=== PATIENT | female | born 1995 | race Caucasian/White ===

== ENCOUNTER 2021-09-02 11:06 | Outpatient (REF) | payer MEDICAID, SELFPAY ==
--- NOTE | ~2021-09-02 | US_ITS ---
EXAMINATION: ULTRASOUND OF THE PELVIS CLINICAL INFORMATION: Pelvic pain. History of PCOS. COMPARISON: CT 11/07/2012. TECHNIQUE: Transabdominal and transvaginal pelvic ultrasound. A transvaginal study was performed in addition to the transabdominal study which did not yield an adequate examination of the uterus and ovaries due to superimposed distended gas-filled loops of bowel. FINDINGS: The uterus is normal in size and appearance, measuring 9 x 3.7 x 4.6 cm longitudinally, anteroposteriorly and transversely. The endometrial stripe thickness is normal, measuring 1.3 cm in thickness. No focal myometrial mass is seen. The ovaries bilaterally are visualized and appear normal, with the right ovary measuring 3.4 x 1.5 x 2.6 cm and the left ovary measuring 2.7 x 2.4 x 2.6 cm. Multiple small follicles are seen involving both ovaries. Dominant follicle the left ovary measures 1.5 cm. No adnexal mass or free fluid collection seen. US/US pelvic and transvaginal IMPRESSION: Multiple small bilateral ovarian follicles can be seen in the setting of polycystic ovarian syndrome..
== END 2021-09-02 11:07 | disposition home or self-care (01) ==
LOC: HO.US 11:06
PROVIDERS: Absent Provider Nurse Practitioner Primary Care; PCP Nurse Practitioner Primary Care; Visit Provider Advanced Practice Midwife
DX: R10.2 Pelvic and perineal pain (principal)
CPT/HCPCS: 76830; 76856

== ENCOUNTER 2022-12-15 16:05 | Outpatient (RCR) | payer MEDICAID, SELFPAY | END 2023-01-31 10:31 | disposition home or self-care (01) | LOC: HO.PT 16:05 | PROVIDERS: PCP Nurse Practitioner Primary Care; Visit Provider Nurse Practitioner Primary Care | DX: M54.41 Lumbago with sciatica, right side (principal); R29.898 Other symptoms and signs involving the musculoskeletal system | CPT/HCPCS: 97110; 97162 ==

== ENCOUNTER 2023-05-27 09:36 | Outpatient (REF) | payer MEDICAID, SELFPAY ==
[2023-05-27 12:28] LABS: TSH reflex Free T4 1.38 uIU/mL (0.32-4.0)
== END 2023-05-27 09:37 | disposition home or self-care (01) ==
LOC: HO.HHCL 09:36
PROVIDERS: Visit Provider Nurse Practitioner Primary Care
DX: R63.5 Abnormal weight gain (principal)
CPT/HCPCS: 36415; 84443

== ENCOUNTER 2024-05-24 12:25 | Outpatient (REF) | payer MEDICAID, SELFPAY ==
--- NOTE | ~2024-05-24 | XR_ITS ---
EXAMINATION: XR HIP, RIGHT XR HIP, LEFT CLINICAL INFORMATION: Atraumatic hip pain COMPARISON: None TECHNIQUE: AP and frog-leg lateral views of each hip. FINDINGS: RIGHT HIP: No fracture. Alignment is anatomic. Hip joint space is maintained. Soft tissues are unremarkable. LEFT HIP: No fracture. Alignment is anatomic. Hip joint space is maintained. Soft tissues are unremarkable. XR/XR hip RT min 2V IMPRESSION: Normal hip radiographs.
--- NOTE | ~2024-05-24 | XR_ITS ---
EXAMINATION: XR HIP, RIGHT XR HIP, LEFT CLINICAL INFORMATION: Atraumatic hip pain COMPARISON: None TECHNIQUE: AP and frog-leg lateral views of each hip. FINDINGS: RIGHT HIP: No fracture. Alignment is anatomic. Hip joint space is maintained. Soft tissues are unremarkable. LEFT HIP: No fracture. Alignment is anatomic. Hip joint space is maintained. Soft tissues are unremarkable. XR/XR hip LT min 2V IMPRESSION: Normal hip radiographs.
== END 2024-05-24 12:26 | disposition home or self-care (01) ==
LOC: HO.XRAY 12:25
PROVIDERS: PCP Nurse Practitioner Primary Care; Visit Provider Nurse Practitioner Primary Care
DX: M25.551 Pain in right hip (principal); M25.552 Pain in left hip
CPT/HCPCS: 73502

== ENCOUNTER → 2024-08-02 17:52 | Outpatient (BNV) | payer MEDICAID, SELFPAY | PROVIDERS: PCP Nurse Practitioner Primary Care; Visit Provider Radiology Diagnostic Radiology | DX: M54.50 Low back pain, unspecified (principal) | CPT/HCPCS: 72148; 72195 ==

== ENCOUNTER 2024-08-02 17:55 | Outpatient (REF) | payer MEDICAID, SELFPAY ==
--- NOTE | ~2024-08-02 | MR_ITS ---
EXAMINATION: MR SACROCOCCYX WITH CONTRAST CLINICAL INFORMATION: Back pain. COMPARISON: None available. TECHNIQUE: Axial T2 fat sat. Axial T1 sequence. Coronal T1 sequence. Coronal STIR sequence. FINDINGS: Submitted for interpretation on October 03, 2024. No bone marrow STIR signal abnormality in the sacrococcyx is or the included bony pelvis nor the coxofemoral joints. No ascites in the peritoneal pelvic cavity. Multiple follicles in the adnexa. No gross solid mass in the uterus. Bladder is fluid-filled. No gross lymphadenopathy. No dilatation of the rectosigmoid colon. MR/MR pelvis wo con IMPRESSION: No acute fracture, sacrococcyx . Electronically signed by: Jaime Bowen MD 10/03/2024 03:52 PM EST
--- NOTE | ~2024-08-02 | MR_ITS ---
EXAMINATION: MR LUMBAR SPINE WITHOUT CONTRAST CLINICAL INFORMATION: Low back pain. COMPARISON: None available. TECHNIQUE: MRI of the lumbar spine was obtained using routine sequences without contrast. FINDINGS: Submitted for interpretation on October 03, 2024. No bone marrow STIR signal abnormality. Disc desiccation at L5-S1. There is a subtle grade 1 retrolisthesis L5-S1. The conus medullaris ends at intervertebral disc L1-2 with normal signal. T12-L1: No disc herniation. No neuroforamina stenosis. L1-2: No disc herniation. No neuroforamina stenosis. L2-3: Broad-based disc bulging. Facet joint hypertrophy. Reduced AP diameter of the thecal sac. No compression upon neural elements. L3-4: Broad-based disc bulging. Facet joint hypertrophy. Reduced AP diameter of the thecal sac. No compression upon neural elements. L4-5: Broad-based disc bulging. Facet joint hypertrophy. Reduced AP diameter of the thecal sac and the neural foramina. No compression upon neural elements. L5-S1: Central and left subarticular broad-based disc herniation encroaching the left S1 nerve root. Facet joint hypertrophy. Bilateral neuroforamina narrowing encroaching the L5 exiting nerve roots. No prevertebral compartment hematoma, mass or fluid collection. MR/MR lumbar spine wo con IMPRESSION: Central and left subarticular broad-based disc herniation L5-S1 encroaching the left S1 nerve root. Bilateral neuroforamina narrowing at L5-S1 and to a lesser extent L4-5 on a degenerative basis. Electronically signed by: Jaime Bowen MD 10/03/2024 09:51 AM EST
== END 2024-08-02 17:56 | disposition home or self-care (01) ==
LOC: HO.MRI 17:55
PROVIDERS: PCP Nurse Practitioner Primary Care; Visit Provider Nurse Practitioner Primary Care
DX: R29.898 Other symptoms and signs involving the musculoskeletal system (principal); M25.651 Stiffness of right hip, not elsewhere classified; M25.652 Stiffness of left hip, not elsewhere classified; M25.551 Pain in right hip; M25.552 Pain in left hip; Z87.39 Personal history of other diseases of the musculoskeletal system and connective tissue
CPT/HCPCS: 72148; 72195

== ENCOUNTER 2024-08-16 14:09 | Outpatient (REF) | payer MEDICAID, SELFPAY ==
[2024-08-16 16:25] LABS: MANUAL DIFF FLAG NO
[2024-08-16 16:30] LABS: Basophils Percent Auto 0.4 % (0-2); Eosinophils Absolute Auto 0.3 X10*3/uL (0.0-0.4); Eosinophils Percent Auto 4.3 % (0-4); Hematocrit 39.3 % (37.0-47.0); Hemoglobin 13.6 g/dl (12.0-16.0); Imm Gran Abs Auto 0.02 X10*3/uL (0.00-0.03); Imm Gran Pct Auto 0.3 % (0.0-0.4); Lymphocytes Absolute Auto 2.8 X10*3/uL (1.2-4.9); Lymphocytes Percent Auto 35.8 % (20-40); Mean Corpuscular HGB Conc 34.6 g/dl (31.0-35.0); Mean Corpuscular Hemoglobin 31.7 pg (27.0-33.0); Mean Corpuscular Volume 91.6 fL (80.0-98.0); Mean Platelet Volume 10.2 fL (9.4-12.3); Monocytes Absolute Auto 0.4 X10*3/uL (0.1-1.2); Monocytes Percent Auto 5.2 % (2-11); Neutrophils Absolute Auto 4.3 x10*3/uL (2.0-8.3); Platelet Count 268 X10*3/uL (160-400); Red Blood Count 4.29 X10*6/uL (4.20-5.50); Red Cell Distribution Width 12.1 % (11.0-16.0); White Blood Count 7.9 X10*3/uL (4.8-10.8)
[2024-08-16 16:41] LABS: Alanine Aminotransferase 11 U/L (0-31); Albumin Level 4.3 g/dL (3.5-5.0); Alkaline Phosphatase 60 U/L (39-117); Anion Gap 12 (12-20); Aspartate Amino Transferase 17 U/L (5-31); Bilirubin Total 0.4 mg/dL (0.0-1.0); Blood Urea Nitrogen 12 mg/dL (9-16); C Reactive Protein 0.19 mg/dL (< or = 0.50); Calcium 9.6 mg/dL (8.4-10.2); Carbon Dioxide 24 mmol/L (22-29); Chloride 107 mmol/L (96-108); Estimated Glomerular Filt Rate > 60; Glucose Random 87 mg/dL (60-115); Potassium 3.7 mmol/L (3.3-5.1); Sodium 139 mmol/L (135-145); Total Protein 7.2 g/dL (6.5-8.0)
[2024-08-16 16:46] LABS: Rheumatoid Factor < 13.0 IU/mL (<15.0)
[2024-08-16 17:09] LABS: Vitamin B12 225 pg/mL (200-900)
[2024-08-16 17:16] LABS: Erythrocyte Sedimentation Rate 10 MM/HR (0-20)
[2024-08-20 15:22] LABS: Anti Nuclear Antibody Pattern Nuclear, Homogeneous; Anti Nuclear Antibody Screen POSITIVE (NEGATIVE); Anti Nuclear Antibody Titer 1:40 titer
[2024-08-20 17:48] LABS: Cyclic Citrullinated Peptide <16 UNITS
== END 2024-08-16 14:10 | disposition home or self-care (01) ==
LOC: HO.HHCL 14:09
PROVIDERS: Visit Provider Nurse Practitioner Primary Care
DX: Z00.00 Encounter for general adult medical examination without abnormal findings (principal); M25.652 Stiffness of left hip, not elsewhere classified; M25.651 Stiffness of right hip, not elsewhere classified
CPT/HCPCS: 36415; 80053; 82607; 85025; 85652; 86038; 86039; 86140; 86200; 86431

== ENCOUNTER 2024-12-14 14:31 | Outpatient (REF) | payer MEDICAID, SELFPAY ==
--- OUTSIDE RECORDS SUMMARY | 2024-12-14 14:35 | XMS_ITS | Encounter Summary ---
Author Organization [employer] Address [address] [place] [address] [address] [place] [address] Care Team Providers Care Art History Professor Name Role Phone Miley Wheatley Primary Care Provider [phone] Keo Carlson Unavailable Unavailable Encounter Details Date Type Department Care Team ([facility] st Contact Info) Description 09/29/2022 Abstract [facility] [address], [place] [phone] Dental, Provider, DDS Social History Tobacco Use Types Packs/Day Years Used Date Smoking Tobacco: Never Assessed Comments Unknown Sex and Gender Information Value Date Recorded Sex Assigned at Female 08/30/2022 10:25 AM EDT Legal Sex Female 10:25 AM EDT Gender Identity Female 08/30/2022 10:25 AM EDT Sexual Orientation Straight 08/30/2022 10 :25 AM EDT documented as of this encounter Plan of Treatment Not on file documented as of this encounter Procedures Procedure Name Priority Date/Time Associated Diagnosis Comments 2 LO COMPOSITE FILLING Routine 09/29/2022 12:00 AM EST 1 EXTRACTION Routine 09/29/2022 12:00 AM EST 32 EXTRACTION Routine 09/29/2022 12:00 AM EST 17 EXTRACTION Routine 09/29/2022 12:00 AM EST 16 EXTRACTION Routine 09/29/2022 12:00 AM EST documented in this encounter Visit Diagnoses Not on filedocumented in this encounter Care Teams Art History Professor Relationship Specialty Start Date End Date Miley Wheatley ANP [address] [place] [address] PCP - General Family Medicine 07/21/21 Keo Carlson FNP [address] [place] [address] Nurse Practitioner Family Medicine 09/20/23 documented as of this encounter
--- OUTSIDE RECORDS SUMMARY | 2024-12-14 14:35 | XMS_ITS | Encounter Summary ---
Author Organization [facility] Address [address] [place] [phone] Phone Care Team Providers Care Glazing Department Supervisor Name Role Phone Shelia Erickson MD Primary Care Provider Unava ilable Encounter Details Date Type Department Care Team (Late st Contact Info) Description 12/18/2013 Documentation [facility] Family Medicine [address] [place] [address] Family Medicine, Physician [address] [place], [place] [phone] Social History Tobacco Use Types Packs/Day Years Used Date Smoking Tobacco: Never Assessed Comments Unknown Sex and Gender Information Value Date Recorded Sex Assigned at Not on file Legal Sex Female 4:44 PM EDT Gender Identity Not on file Sexual Orientation Not on file documented as of this encounter Plan of Treatment Not on file documented as of this encounter Visit Diagnoses Not on filedocumented in this encounter Care Teams Glazing Department Supervisor Relationship Specialty Start Date End Date Shelia Erickson MD PCP - General 06/10/17 documented as of this encounter
--- OUTSIDE RECORDS SUMMARY | 2024-12-14 14:35 | XMS_ITS | Patient Health Record ---
Author Organization [facility] Address [address] [place] [address] Care Team Providers Care Afternoon Babysitter Name Role Phone GERMANIA JACOBSON Primary Care Provider Unavailab Shara Long Unavailable [phone] Allergies Allergen (clinical drug ingredient) Drug/Non Drug Allergy documented on EMR Reaction Allergy Type Onset Date Status amoxicillin AMOXICILLIN Skin Rash Drug Allergy Act sanjeev carbamazepine TEGRETOL Skin Rash Drug Allergy Act sanjeev Reason For Referral No Information Medications Medication SIG (Take, Route, Frequency, Duration) Notes Start Date End Date Status EpiPen 2-Robert 0.3 MG/0.3ML Intramuscula for -3 [facility] 10/15/2014 Active ProAir HFA 90MCG 2 Inhalation four ti mes daily for -3 [facility] 10/15/2014 Active FLUoxetine HCl UNKNOWN 1 ORAL daily for -3 [facility] 012 Active Aygestin 5 MG 1 tablet Orally ALEC Y for 10 days 11/05/2015 Not-Taking Ativan 0.5 MG 1 tablet as needed Orally Twice a day Active NuvaRing 0.12-0.015MG/24HR Vaginal for -3 [facility] 10/15/2014 Active NuvaRing 0.12-0.015 MG/24HR 1 ring Vaginal EVERY MONTH for 90 days 01/20/2016 Active cloNIDine HCl 1 MG 1 ORAL daily for -3 [facility] 03/23/2012 Active Problems Problem Type SNOMED Code ICD Code Onset Dates Problem Status W/U Status Risk Notes Problem Amenorrhea (88375558) Amenorrhea, unspecified (N91.2) Active confirmed Problem Candidal vulvovaginitis (80514976) Candidiasis of vulva and vagina (112.1) Active confirmed Other Problem Female genital organ symptoms (337383042) Other specified symptom associated with female genital organs (625.8) Active confirmed Major Plan Of Treatment Pending Test Test Name Order Date Urinalysis 01/20/2016 TESTOSTERONE 11/05/2015 Insurance Providers Payer Name Payer Address Payer Phone Subscriber Number Group Number Insured Name Patient Relationship to Insured Coverage Start Date Coverage End Date [facility] [address] [place] [address] [id number] SHARMAINE GALEANO Child - Insured has Financial Responsibility Medical (General) History Medical History History ICD Code Other specified conditions a ssociated with female genital organs and menstrual cycle N94.89 Candidiasis of vulva and vagina B37.3 Surgical History Surgery Date(Month/Year) Breast Reduction 09/2014 Hospitalization History Reason Date(Month/Year) See Surgical Hx
--- OUTSIDE RECORDS SUMMARY | 2024-12-14 14:35 | XMS_ITS | Clinical Summary ---
Author Organization [facility] Address [address] [place] [address] Phone Care Team Providers Care Ophthalmic Surgical Assistant Name Role Phone Shelia Erickson MD Primary Care Provider Amol ildeyvi Immunizations Immunization Administration Dates Next Due DTP 04/04/1996, 5,1995, 995 DTaP 5 01/11/2000 HPV, Quadrivalent 10/12/2012,03/31/2012,07/21/20 11 Hep B, ped/adol 1995,1995,1995 Hib (PRP-T) 04/04/1996, 5,1995, 995 IPV 01/11/2000 Influenza Split 10/12/2012,07/21/2011 MMR 05/13/1999,04/04/1996 Meningococcal Conj (Menactra) MCV4P 01/02/2007 OPV 1995,1995,1995 Tdap 01/02/2007 Varicella 05/15/2008,05/13/1999 Family History Relation Name Status Comments Father Alive Father: Alive a nd well Mother Alive Mother: Asthma Sister 1 Alive Sister: Alive a nd well, Alive and well Sister 2 Alive Sister: Alive a nd well, Alive and well Social History Tobacco Use Types Packs/Day Years Used Date Smoking Tobacco: Never Assessed Comments Unknown Sex and Gender Information Value Date Recorded Sex Assigned at Not on file Legal Sex Female 4:44 PM EDT Gender Identity Not on file Sexual Orientation Not on file Last Filed Vital Signs Vital Sign Reading Time Taken Comments Blood Pressure 110/70 02/05/2013 12:00 AM EDT Pulse 72 09/16/2011 12:00 AM EST Temperature 36.8 ??C (98.2 ??F) 02/05/2013 12:00 AM E DT Respiratory Rate - - Oxygen Saturation 97% 09/16/2011 12:00 AM EST Inhaled Oxygen Concentration - - Weight 75.3 kg (166 lb) 02/05/2013 12:00 AM EDT Height 157 cm (5' 1.8 ) 02/05/2013 12:00 AM EDT Body Mass Index 30.56 02/05/2013 12:00 AM EDT Plan of Treatment Health Maintenance Due Date Last Done Comments DTaP,Tdap,and Td Vaccines (7 - Td or Tdap) 01/02/2017 01/02/2007, 01/11/2000, 04/04/1996, Additional history exists Influenza Vaccines (#1) 2024 10/12/2012, 07/21 COVID-19 Vaccine ( season) 2024 Hepatitis B Vaccines Completed 1995, 1995, 1995 HIB Vaccines Completed 04/04/1996, 05/1995, 1995, Additional history exists MMR Vaccines Completed 05/13/1999, 04/04/1996 IPV Vaccines Completed 01/11/2000, 05/1995, 1995, Additional history exists Meningococcal Vaccine Aged Out 01/02/2007 No josh dmitry eligible based on patient's age to complete this topic Varicella Vaccines Completed 05/15/2008, 05/13/1999 HPV Vaccines Completed 10/12/2012, 10/2011, 07/21/2011 Hepatitis A Vaccines Aged Out No long er eligible based on patient's age to complete this topic Men B Vaccine Aged Out No longer elig ible based on patient's age to complete this topic Pneumococcal Vaccine Aged Out No long er eligible based on patient's age to complete this topic Procedures * Due to [place] Med[employer] law, this organization might not be sharing sensitive test results. Procedure Name Priority Date/Time Associated Diagnosis Comments CHLAMYDIA AND GONORRHEA, AMPLIFIED Routine 02/06/2013 12:54 PM EDT from Last 3 Months or Most Recently Relevant to Health Maintenance Results * Due to [place] [employer] law, this organization might not be sharing sensitive test results. * Chlamydia and Gonorrhoea, Amplified (02/06/2013 12:54 PM EDT) URINE CHLAMYDIA AMP PROBE NEGATIVE [facility] Comment: NO CHLAMYDIA TRACHOMATIS RNA DETECTED IN THIS PATIENT'S SAMPLE. ? (REFERENCE RANGE/NORMAL VALUE: NOT DETECTED) URINE GC AMP PROBE NEGATIVE [facility] Comment: NO NEISSERIA GONORRHOEAE RNA DETECTED IN THIS PATIENT'S SAMPLE. ? (REFERENCE RANGE/NORMAL VALUE: NOT DETECTED) ? NOTE: THIS TEST USES [employer] BUSINESS ANALYST-MEDIATED AMPLIFICATION METHOD TO DETECT rRNA FROM C.TRACHOMATIS AND N.GONORRHOEAE. A NEGATIVE RESULT DOES NOT PRECLUDE INFECTION. THE APTIMA COMBO 2 ASSAY IS NOT INTENDED FOR THE EVALUATION OF SUSPECTED SEXUAL ABUSE OR FOR OTHER MEDICO LEGAL INDICATIONS. THERAPEUTIC FAILURE OR SUCCESS CANNOT BE DETERMINED WITH THE APTIMA COMBO 2 ASSAY SINCE NUCLEIC ACID MAY PERSIST FOLLOWING APPROPRIATE ANTIMICROBIAL THERAPY. IN THE CASE OF A NEGATIVE URINE RESULT, TESTING OF AN ENDOCERVICAL (FEMALE) OR URETHRAL (MALE) SPECIMEN IS RECOMMENDED IF THERE IS HIGH CLINICAL SUSPICION OF INFECTION. 02/06/2013 12:5 4 PM EDT Narrative [facility] - 02/06/2013 12:54 PM EDT URINE CHLAMYDIA GC AMP PROBE us Fe Sanchez MD LAB MICROBIOLOGY - GENERAL ORDER RAFFI Final Result [facility] [address] [place] [id number], [place] from Last 3 Months or Most Recently Relevant to Health Maintenance Care Teams Ophthalmic Surgical Assistant Relationship Specialty Start Date End Date Shelia Erickson MD PCP - General 06/10/17
--- OUTSIDE RECORDS SUMMARY | 2024-12-14 14:35 | XMS_ITS | Encounter Summary ---
Author Organization [employer] Address [address] [place] [address] Care Team Providers Care Superintendent Sales Name Role Phone Dioni Miley DOWNEY Primary Care Provider [phone] Keo Carlson Unavailable Unavailable Encounter Details Date Type Department Care Team (Late st Contact Info) Description 11/22/2024 1:50 PM EST Immunization [facility] [address], [place] [phone] Melvi Pleitez LPN B12 deficiency (Primary Dx) Social History Tobacco Use Types Packs/Day Years Used Date Smoking Tobacco: Former Cigarettes Passive Smoke Exposure: Past Smokeless Tobacco: Never Alcohol Use Standard Drinks/Week Comments Yes 1 (1 standard drink = 0.6 oz pur e alcohol) Depression Answer Date Recorded Patient Health Questionnaire-9 Score 3 01/10/2024 Patient Health Questionnaire-9 Score 3 01/10/2024 Last PHQ-9: Questionnaire Data Not on file 0 01/10/2024 Housing Stability Answer Date Recorded What is your housing situation today? I have rafa marie 04/05/[address] you li ve. Do you have problems with any of the following? None of the above 04/05/2024 Food Insecurity Answer Date Recorded Within the past 12 months, y ou worried that your food would run out before you got money to buy more: Never True 04/05/2024 Within the past 12 months,th e food you bought just didn't last and you didn't have enough money to get more: Never True 03/2024 Transportation Answer Date Recorded In the past 12 months, has l ack of transportation kept you from medical appts, meetings, work or from getting things needed for daily living? No 04/05/2024 Utilities Answer Date Recorded In the past 12 months, has t he electric, gas, oil or water company threatened to shut off services in your home? No 04/05/2024 Depression Answer Date Recorded Patient Health Questionnaire-2 Score 0 01/10/2024 Comments No Sex and Gender Information Value Date Recorded Sex Assigned at Female 08/30/2022 10:25 AM EDT Legal Sex Female 10:25 AM EDT Gender Identity Female 08/30/2022 10:25 AM EDT Sexual Orientation Straight 08/30/2022 10 :25 AM EDT documented as of this encounter Progress Notes * Melvi Pleitez LPN - 11/22/2024 1:50 PM EST SUBJECTIVE: Demetria Goel is a 29 y.o. year old female who presents for No chief complaint on file. Preferred language for medical information: Bulgarian Estate Manager needed: No Standing Ordered verified: Yes, Demetria Goel denies any difficulties with previous injection that was received. Allergies Allergen Reactions Fish Oil Anaphylaxis Warners, other fish ok Peanut-Containing Drug Products Anaphylaxis Soybean-Containing Drug Products Anaphylaxis Tree Nuts [Irene Oil] Hives Fluoxetine Other Other reaction(s): Suicidality Amoxicillin Hives and Rash Carbamazepine Hives and Rash OBJECTIVE: B-12 injection given in Right Deltoid, medication was tolerated well. ASSESSMENT: Vitamin B12 deficiency PLAN: Demetria Goel will return for next injection on 11/29/2024 . [x] Advised to monitor injection site for any increased redness or swelling [x] Next appointment given Demetria Goel agrees with plan of care and verbalized understanding of instructions/education. Melvi Pleitez LPN documented in this encounter Plan of Treatment Not on file documented as of this encounter Visit Diagnoses Diagnosis B12 deficiency- Primary documented in this encounter Administered Medications Inactive Administered Medications - up to 3 most recent administrations Medication Order MAR Action Action Date Dose Rate Site cyanocobalamin (Vitamin B-12) injection 1,000 mcg 1,000 mcg, Intramuscular, Once, On Inocencia 11/22/24 at 1515, For 1 doseIndications:B12 deficiency Given 11/22/2024 3:15 PM EST 1,000 mcg Right Deltoid documented in this encounter Additional Health Concerns Assessment Noted Time PHQ-9 Depression Total Score: 3 01/10/20 24 9:18 AM EDT documented as of this encounter Care Teams Superintendent Sales Relationship Specialty Start Date End Date Miley Wheatley ANP [address] [place] [address] PCP - General Family Medicine 07/21/21 Keo Carlson FNP [address] [place] [address] Nurse Practitioner Family Medicine 09/20/23 documented as of this encounter
--- OUTSIDE RECORDS SUMMARY | 2024-12-14 14:35 | XMS_ITS | Clinical Summary ---
Author Organization [facility] Address [address] [place] [phone] Phone Care Team Providers Care Windsmith Name Role Phone Pito Mims MD Primary Care Provider [phone] Encounters Date Type Department Care Team Description 12/05/2024 9:00 AM EST - 12/05/2024 11:59 PM EST Hospital Encounter [facility] [address] [place] [phone] Localization-relate d (focal) (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, not intractable, without status epilepticus (CMS/HCC) (Primary Dx) Discharge Disposition: Home or Self Care 12/05/2024 Lab [facility] [address] [place] [phone] Odalys Gaona MD Localization-relate d (focal) (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, not intractable, without status epilepticus (CMS/HCC) 12/04/2024 9:00 AM EST - 12/04/2024 11:59 PM EST Hospital Encounter [facility] [address] [place] [phone] Discharge Disposition: Home or Self Care 12/04/2024 [facility] [address] [place] [phone] Odalys Gaona MD Localization-relate d (focal) (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, not intractable, without status epilepticus (CMS/HCC) 12/03/2024 7:39 AM EST - 12/03/2024 11:59 PM EST Hospital Encounter [facility] [address] [place] [phone] Discharge Disposition: Home or Self Care 12/03/2024 Lab [facility] [address] [place] [phone] Odalys Gaona MD Localization-relate d (focal) (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, not intractable, without status epilepticus (CMS/HCC) from Last 3 Months Surgical History Surgery Date Site/Laterality Comments BREAST REDUCTION 2012 PROCEDURE: LA BREAST REDUCTION Medical History Medical History Date Comments PCOS (polycystic ovarian syndrome) DX:PCOS (polycystic ovarian syndrome) Anxiety DX:Anxiety Depression DX:Depression Family History Medical History Relation Name Comments Colon cancer Other 1 Breast cancer Other 2 Ovarian cancer Other 3 Relation Name Status Comments Other 1 Other 2 Other 3 Other 4 Social History Tobacco Use Types Packs/Day Years Used Date Smoking Tobacco: Never Smokeless Tobacco: Never Alcohol Use Standard Drinks/Week Comments Yes 0 (1 standard drink = 0.6 oz pur e alcohol) Comments Unknown Sex and Gender Information Value Date Recorded Sex Assigned at Not on file Legal Sex Female 11:47 PM EST Gender Identity Not on file Sexual Orientation Not on file Obstetrics History Plan of Treatment Health Maintenance Due Date Last Done Comments Hepatitis A Vaccines (2 of 2 - 2-dose series) 11/13/1999 05/13/1999 Pneumococcal Vaccine: Pediatrics (0 to 5 Years) and At-Risk Patients (6 to 64 Years) (1 of 2 - PCV) 2014 Cervical Cancer Screening: Pap Smear 01/06/2016 Hepatitis C Screening 11/30/2024 Social Influencers of Health Screening 11/30/2024 Depression Screening 01/09/2025 01/10/2024 Cholesterol Screening (Lipid Panel) 06/29/2026 06/29/2021 DTaP,Tdap,and Td Vaccines (8 - Td or Tdap) 04/06/2032 04/06/2022, 01/02/2007, 01/11/2000, Additional history exists Hepatitis B Vaccines Completed 1995, 1995, 1995 HIB Vaccines Completed 04/04/1996, 05/1995, 1995, Additional history exists MMR Vaccines Completed 05/13/1999, 04/04/1996 IPV Vaccines Completed 01/11/2000, 05/1995, 1995, Additional history exists Meningococcal ACWY Vaccine Aged Out 01/02/2007 N o longer eligible based on patient's age to complete this topic Varicella Vaccines Completed 05/15/2008, 05/13/1999 HPV Vaccines Completed 10/12/2012, 10/2011, 07/21/2011 HIV Screening Completed 06/29/2021 COVID-19 Vaccine Completed 08/16/2024, , 06/23/2021, Additional history exists Influenza Vaccine Completed 08/16/2024, , 11/19/2022, Additional history exists Meningococcal B Vacine Aged Out No lo nger eligible based on patient's age to complete this topic RSV Immunization Patients Under 20 months Aged Out No longer eligible based on patient's age to complete this topic Insurance MEDICAID - [place] Care Teams Windsmith Relationship Specialty Start Date End Date Pito Mims MD [address] [place] [address] PCP - General Internal Medicine 03/20/14
--- OUTSIDE RECORDS SUMMARY | 2024-12-14 14:35 | XMS_ITS | Encounter Summary ---
Author Organization [facility] Address [address] [place] [address] Phone Care Team Providers Care Family Resource Coordinator Name Role Phone Shelia Erickson MD Primary Care Provider Unava ilable Encounter Details Date Type Department Care Team (Late st Contact Info) Description 11/13/2012 Documentation [facility] Family Medicine [address] [place] [address] Family Medicine, Physician [address] [place], [place] [id number] Social History Tobacco Use Types Packs/Day Years [...] on filedocumented in this encounter Care Teams Family Resource Coordinator Relationship Specialty Start Date End Date Shelia Erickson MD PCP - General 06/10/17 documented as of this encounter
--- OUTSIDE RECORDS SUMMARY | 2024-12-14 14:35 | XMS_ITS | Encounter Summary ---
Author Organization [facility] Address [address] [place] [address] Care Team Providers Care Assistant Prosecuting Attorney Name Role Phone Pito Mims MD Primary Care Provider [phone] Encounter Details Date Type Department Care Team (Late st Contact Info) Description 12/03/2024 [facility] Neurodiagnostic [address] [place] [address] Odalys Gaona MD [address] [place] [address] [place] [address] Localization-related (focal) (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, not intractable, without status epilepticus (CMS/HCC) Social History Tobacco Use Types Packs/Day Years [...] as of this encounter Plan of Treatment Pending Results Name Type Priority Associated Diagnoses Date /Time Continuous EEG Neurology Routine Localization-related (focal) (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, not intractable, without status epilepticus (CMS/HCC) 12/03/2024 9:13 AM EST documented as of this encounter Visit Diagnoses Diagnosis Localization-related (focal) (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, not intractable, without status epilepticus (CMS/HCC) documented in this encounter Care Teams Assistant Prosecuting Attorney Relationship Specialty Start Date End Date Pito Mims MD [address] [place] [address] PCP - General Internal Medicine 03/20/14 documented as of this encounter
--- OUTSIDE RECORDS SUMMARY | 2024-12-14 14:35 | XMS_ITS | Encounter Summary ---
Author Organization [facility] Address [address] [place] [address] Care Team Providers Care Carbon Furnace Operator Name Role Phone Milind Aburto MD Primary Care Provider [phone] Reason for Visit * Reason Comments E-prescribing Refill Request Encounter Details Date Type Department Care Team (Late st Contact Info) Description 06/17/[address] [facility] [address] [address] Sukhjinder Guzman PA E-prescribing Refill Request Social History Tobacco Use Types Packs/Day Years Used Date Smoking Tobacco: Never Assessed Comments Unknown Sex and Gender Information Value Date Recorded Sex Assigned at Not on file Legal Sex Female 3:40 PM EDT Gender Identity Not on file Sexual Orientation Not on file COVID-19 Exposure Response Date Recorded In the last month, have you been in contact with someone who was confirmed or suspected to have Coronavirus / COVID-19? No / Unsure 05/20/2020 3:46 PM EDT documented as of this encounter Plan of Treatment Not on file documented as of this encounter Visit Diagnoses Not on filedocumented in this encounter Care Teams Carbon Furnace Operator Relationship Specialty Start Date End Date Milind Aburto MD [facility] [address] [place] [phone] PCP - General Internal Medicine 05/20/20 documented as of this encounter
--- OUTSIDE RECORDS SUMMARY | 2024-12-14 14:35 | XMS_ITS | Encounter Summary ---
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 Neurodiagnostic [address] [place] [phone] Phone: tel: Referral ID Status Reason Start Date Expiration Date Visits Re quested Visits Authorized [id number] Closed 11/30/2024 11/30/2025 3 3 Encounter Details Date Type Department Care Team (Latest Contact Info) Description 12/03/2024 7:39 AM EST - 12/03/2024 11:59 PM EST Hospital Encounter [facility] [address] [place] [phone] Discharge Disposition: Home or Self Care Social History Tobacco Use Types Packs/Day Years [...] on file documented as of this encounter Discharge Disposition Disposition Code Departure Means Destination Home or Self Care documented in this encounter Plan of Treatment Pending Results Name Type Priority Associated Diagnoses Date /Time Continuous EEG Neurology Routine Localization-related (focal) (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, not intractable, without status epilepticus ([facility]) 12/03/2024 9:13 AM EST documented as of this encounter Visit Diagnoses Not on filedocumented in this encounter Care Teams Cornetist Relationship Specialty Start Date End Date Pito Mims MD [address] [place] [address] PCP - General Internal Medicine 03/20/14 documented as of this encounter
--- OUTSIDE RECORDS SUMMARY | 2024-12-14 14:35 | XMS_ITS | Encounter Summary ---
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 [place] Neurodiagnostic [address] [place] [phone] Phone: tel: Referral ID Status Reason Start Date Expiration Date Visits Re quested Visits Authorized [id number] Closed 11/30/2024 11/30/2025 3 3 Encounter Details Date Type Department Care Team (Latest Contact Info) Description 12/04/2024 9:00 AM EST - 12/04/2024 11:59 PM EST Hospital Encounter [facility] [place] Neuro[facility] [address] [place] [phone] Discharge Disposition: Home or Self Care [...] partial seizures, not intractable, without status epilepticus ([facility]) 12/04/2024 9:07 AM EST documented as of this encounter Visit Diagnoses Not on filedocumented in this encounter Care Teams Maintenance Shop Laborer Relationship Specialty Start Date End Date Pito Mims MD [address] [place] [address] PCP - General Internal Medicine 03/20/14 documented as of this encounter
--- OUTSIDE RECORDS SUMMARY | 2024-12-14 14:35 | XMS_ITS | Encounter Summary ---
Author Organization [employer] Address [address] [place] [address] [address] [place] [address] Care Team Providers Care Dental Specialist Name Role Phone Miley Wheatley Primary Care Provider [phone] Keo Carlson Unavailable Unavailable Encounter Details Date Type Department Care Team (Latest Contact Info) Description 07/07/2021 Abstract [facility] CONVERSIONS Dental, Provider, DDS Social History Tobacco Use [...] on filedocumented in this encounter Care Teams Dental Specialist Relationship Specialty Start Date End Date Miley Wheatley ANP [address] [place] [address] PCP - General Family Medicine 07/21/21 Keo Carlson FNP [address] [place] [address] Nurse Practitioner Family Medicine 09/20/23 documented as of this encounter
--- OUTSIDE RECORDS SUMMARY | 2024-12-14 14:35 | XMS_ITS | Encounter Summary ---
Author Organization [facility] Address [address] [place] [address] Care Team Providers Care Rodding Machine Tender Name Role Phone Pito Mims MD Primary Care Provider [phone] Encounter Details Date Type Department Care Team (Late st Contact Info) Description 12/05/2024 Lab [facility] Neurodiagnostic [address] [place] [address] Odalys Gaona MD [address] [place] [address] [place] [address] Localization-related (focal) (partial) symptomatic epilepsy and epileptic [...] status epilepticus (CMS/HCC) documented in this encounter Orders Neurology Count Last Ordered Date First Orde red Date CONTINUOUS EEG 1 12/05/2024 documented in this encounter Care Teams Rodding Machine Tender Relationship Specialty Start Date End Date Pito Mims MD [address] [place], [place] [phone] PCP - General Internal Medicine 03/20/14 documented as of this encounter
--- OUTSIDE RECORDS SUMMARY | 2024-12-14 14:35 | XMS_ITS | Encounter Summary ---
Author Organization [facility] Address [address] [place] [address] Care Team Providers Care Owner Operator Tanker Truck Driver Name Role Phone Pito Mims MD Primary Care Provider [phone] Reason for Visit * Neurology (Routine) - Closed Specialty Diagnoses / Procedures Referred By Contac t Referred To Contact Neurology Diagnoses Localization-related (focal) (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, not intractable, without status epilepticus (CMS/HCC) Procedures Continuous EEG Odalys Gaona MD [address] [place] [address] [place] [address] Phone: tel: fax: [facility]diagnostic [address] [place] [phone] Phone: tel: Referral ID Status Reason Start Date Expiration Date Visits Re quested Visits Authorized [id number] Closed 11/30/2024 11/30/2025 3 3 Encounter Details Date Type Department Care Team (Latest Contact Info) Description 12/05/2024 9:00 AM EST - 12/05/2024 11:59 PM EST Hospital Encounter [facility]diagn[facility] [address] [place] [phone] Localization-relate d (focal) (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, not intractable, without status epilepticus (CMS/HCC) (Primary Dx) Discharge Disposition: Home or Self Care Social [...] partial seizures, not intractable, without status epilepticus (CMS/HCC)- Primary documented in this encounter Orders Neurology Count Last Ordered Date First Orde red Date CONTINUOUS EEG 1 12/05/2024 documented in this encounter Care Teams Owner Operator Tanker Truck Driver Relationship Specialty Start Date End Date Pito Mims MD [address] [place] [address] PCP - General Internal Medicine 03/20/14 documented as of this encounter
--- OUTSIDE RECORDS SUMMARY | 2024-12-14 14:35 | XMS_ITS | Encounter Summary ---
Author Organization [employer] Address [address] [facility] [address] [place] [address] Care Team Providers Care Manager Consumer Name Role Phone Dioni Miley DOWNEY Primary Care Provider [phone] Keo Carlson Unavailable Unavailable Encounter Details Date Type Department Care Team (Late st Contact Info) Description 11/29/2024 1:50 PM EST Immunization [facility] MEDICINE [address] [place], [place] [phone] Melvi Pleitez LPN B12 deficiency (Primary Dx) [...] Recorded Patient Health Questionnaire-2 Score 0 01/10/2024 Internet Access Answer Date Recorded Internet Access Q1 Yes 11/30/2024 Internet Access Q2 Not on file 11/30/2024 Comments No Sex and Gender Information Value Date Recorded Sex Assigned at Female 08/30/2022 10:25 AM EDT Legal Sex Female 10:25 AM EDT Gender Identity Female 08/30/2022 10:25 AM EDT Sexual Orientation Straight 08/30/2022 10 :25 AM EDT documented as of this encounter Progress Notes * Melvi Pleitez LPN - 11/29/2024 1:50 PM EST SUBJECTIVE: Demetria Goel is a 29 y.o. year old female who presents for No chief complaint on file. Preferred language for medical information: [place]au[place] Licensed Nursing Assistant needed: No Standing Ordered verified: Yes Demetria Goel denies any difficulties with previous injection that was received. Allergies Allergen Reactions Fish Oil Anaphylaxis [place], other fish ok Peanut-Containing Drug Products Anaphylaxis Soybean-Containing Drug Products Anaphylaxis Tree Nuts [Tipton Oil] Hives Fluoxetine Other Other reaction(s): Suicidality Amoxicillin Hives and Rash Carbamazepine Hives and Rash OBJECTIVE: B-12 injection given in Right Deltoid, medication was tolerated well. ASSESSMENT: Vitamin B12 deficiency PLAN: [x] Advised to monitor injection site for any increased redness or swelling [x] Next appointment given Demetria Goel agrees with plan of care and verbalized understanding of instructions/education. Melvi Pleitez LPN This action has been completed by Melony Sheth, a student nurse from [employer] [facility] [employer], in collaboration with Melvi Pleitez LPN documented in this encounter Plan of Treatment Not on file documented as of this encounter Visit Diagnoses Diagnosis B12 deficiency- Primary documented in this encounter Administered Medications Inactive Administered Medications - up to 3 most recent administrations Medication Order MAR Action Action Date Dose Rate Site cyanocobalamin (Vitamin B-12) injection 1,000 mcg 1,000 mcg, Intramuscular, Once, On Inocencia 11/29/24 at 1445, For 1 doseIndications:B12 deficiency Given 11/29/2024 2:45 PM EST 1,000 mcg Right Deltoid documented in this encounter Additional Health Concerns Assessment Noted Time PHQ-9 Depression Total Score: 3 01/10/20 24 9:18 AM EDT documented as of this encounter Care Teams Manager Consumer Relationship Specialty Start Date End Date Miley Wheatley ANP [address] [place] [address] PCP - General Family Medicine 07/21/21 Keo Carlson FNP [address] [place] [address] Nurse Practitioner Family Medicine 09/20/23 documented as of this encounter
--- OUTSIDE RECORDS SUMMARY | 2024-12-14 14:35 | XMS_ITS | Encounter Summary ---
Author Organization [facility] Address [address] [place] [address] Phone Care Team Providers Care Career Coach Name Role Phone Shelia Erickson MD Primary Care Provider Unava ilable Encounter Details Date Type Department Care Team (Late st Contact Info) Description 07/02/2010 Documentation [facility] Family Medicine [address] [place] [address] Family Medicine, Physician [address] [place], [place] [id number] Social History Tobacco Use Types Packs/Day Years [...] on filedocumented in this encounter Care Teams Career Coach Relationship Specialty Start Date End Date Shelia Erickson MD PCP - General 06/10/17 documented as of this encounter
--- OUTSIDE RECORDS SUMMARY | 2024-12-14 14:35 | XMS_ITS | Encounter Summary ---
Author Organization [facility] Address [address] [place] [address] Phone Care Team Providers Care Coding Specialist Name Role Phone Shelia Erickson MD Primary Care Provider Unava ilable Encounter Details Date Type Department Care Team (Late st Contact Info) Description 06/16/2017 Conversion Encounter [facility] - [address] [address] Social History Tobacco Use Types Packs/Day Years [...] on filedocumented in this encounter Care Teams Coding Specialist Relationship Specialty Start Date End Date Shelia Erickson MD PCP - General 06/10/17 documented as of this encounter
--- OUTSIDE RECORDS SUMMARY | 2024-12-14 14:35 | XMS_ITS | Clinical Summary ---
Author Organization [facility] Address [address] [place] [address] Care Team Providers Care Grain Drier Name Role Phone Milind Aburto MD Primary Care Provider [phone] Allergies Active Allergy Reactions Criticality Noted Date Comments Amoxicillin Urticarial Rash 05/20/2020 Tegretol Urticarial Rash 05/20/2020 Medications Fluvoxamine Maleate (LUVOX) 50 MG tablet 05/13/2020 Active ProAir HFA 108 (90 Base) MCG/ACT inhaler 01/23/2020 Act sanjeev LORazepam (ATIVAN) 0.5 MG tablet Take 0.5 mg by mouth every 6 (six) hours if needed for anxiety Active Immunizations Name Administration Dates Next Due COVID-19, mRNA (Pfizer Pre F all 2022) Monovalent, 30 mcg/0.3 ml 06/23/2021 HPV4 (Gardasil 4) 10/12/2012,03/31/2012,07/21/20 11 Hep A (pedi) 05/13/1999 Hep B (pedi) 1995,1995,1995 Hib (HbOC) 04/04/1996, 5,1995, 995 IPV 01/11/2000 Influenza,injectable,quad,Prsrv Fr 07/22/2021 Influenza,seasonal,trivalent ,preserv ative (FLUZONE MDV) 10/12/2012,07/21/2011 Influenza,split(incl.purifie d surface antigen) 11/21/2013 MMR 05/13/1999,04/04/1996 OPV 1995,1995,1995 Varicella 05/15/2008,05/13/1999 Social History Tobacco Use Types Packs/Day Years Used Date Smoking Tobacco: Never Assessed Intimate Partner Violence Answer Date R ecorded Fear of Current or Ex-Partner Not on file Emotionally Abused Not on file 06/23/2023 Physically Abused Not on file 06/23/2023 Sexually Abused Not on file 06/23/2023 Feel Safe at Home Not on file 06/23/2023 Comments Unknown Sex and Gender Information Value Date Recorded Sex Assigned at Not on file Legal Sex Female 3:40 PM EDT Gender Identity Not on file Sexual Orientation Not on file Last Filed Vital Signs Vital Sign Reading Time Taken Comments Blood Pressure 104/68 05/20/2020 3:55 PM EDT Pulse 73 05/20/2020 3:55 PM EDT Temperature 36.7 ??C (98.1 ??F) 05/20/2020 3:55 PM ED T Respiratory Rate 18 05/20/2020 3:55 PM EDT Oxygen Saturation - - Inhaled Oxygen Concentration - - Weight - - Height - - Body Mass Index - - Plan of Treatment Health Maintenance Due Date Last Done Comments Hepatitis C Screening 1995 Hep A (2 of 2 - 2-dose series) 11/13/1999 05/13/1999 Pap Smear 2011 DTaP/Tdap/Td (1 - Tdap) 2013 COVID-19 Vaccine ( - season) 2024 06/23/2021 Influenza (#1) 2024 07/22/2021, 11/01, 10/12/2012, Additional history exists Zoster (Shingrix) (1 of 2) 2045 05/15/2008, Hep B Completed 1995, 10/1994, 1995 Hib Completed 04/04/1996, 05/1995, 1995, Additional history exists HPV Vaccine Completed 10/12/2012, 10/2011, 07/21/2011 Meningococcal ACWY Aged Out No longer eligible based on patient's age to complete this topic Pneumococcal Aged Out No longer eligi ble based on patient's age to complete this topic Insurance [facility] Care Teams Grain Drier Relationship Specialty Start Date End Date Milind Aburto MD [facility] Adult Medicine [address] [place] [phone] PCP - General Internal Medicine 05/20/20
--- OUTSIDE RECORDS SUMMARY | 2024-12-14 14:35 | XMS_ITS | Encounter Summary ---
Author Organization [employer] Address [address] [place] [address] [address] [place] [address] Care Team Providers Care Shop Cooper Name Role Phone Miley Wheatley Primary Care Provider [phone] Keo Carlson Unavailable Unavailable Encounter Details Date Type Department Care Team (Latest Contact Info) Description 08/21/2019 Abstract [facility] CONVERSIONS Dental, Provider, DDS Social History [...] on filedocumented in this encounter Care Teams Shop Cooper Relationship Specialty Start Date End Date Miley Wheatley ANP [address] [place] [address] PCP - General Family Medicine 07/21/21 Keo Carlson FNP [address] [place] [address] Nurse Practitioner Family Medicine 09/20/23 documented as of this encounter
--- OUTSIDE RECORDS SUMMARY | 2024-12-14 14:35 | XMS_ITS | Encounter Summary ---
Author Organization [employer] Address [address] [facility] [address] [place] [address] Care Team Providers Care Jewelry Sorter Name Role Phone Wheatley Miley DOWNEY Primary Care Provider [phone] Koe Carlson Unavailable Unavailable Encounter Details Date Type Department Care Team (Latest Contact Info) Description 12/14/2024 Travel Social History Tobacco Use Types Packs/Day Years [...] Diagnoses Not on filedocumented in this encounter Additional Health Concerns Assessment Noted Time PHQ-9 Depression Total Score: 3 01/10/20 24 9:18 AM EDT documented as of this encounter Care Teams Jewelry Sorter Relationship Specialty Start Date End Date Miley Wheatley ANP [address] [place] [address] PCP - General Family Medicine 07/21/21 Keo Carlson FNP [address] [place] [address] Nurse Practitioner Family Medicine 09/20/23 documented as of this encounter
--- OUTSIDE RECORDS SUMMARY | 2024-12-14 14:35 | XMS_ITS | Encounter Summary ---
Author Organization [employer] Address [address] [place] [address] [address] [place] [address] Care Team Providers Care Stitch Burnisher Name Role Phone Miley Wheatley Primary Care Provider [phone] Keo Carlson Unavailable Unavailable Encounter Details Date Type Department Care Team (Late st Contact Info) Description 12/14/2024 1:30 PM EST Office Visit [facility] [address] [place], [place] [phone] Miley Wheatley ANP [address] [place], [place] [phone] Mood disorder (CMS/HCC) (Primary Dx); Obesity (BMI 30-39.9); Class 2 severe obesity with serious comorbidity and body mass index (BMI) of 37.0 to 37.9 in adult, unspecified obesity type (CMS/HCC); PCOS (polycystic ovarian syndrome); Mild intermittent asthma without complication; B12 deficiency Social History Tobacco Use Types Packs/Day Years [...] AM EDT documented as of this encounter Patient Instructions * Patient Instructions* NASREEN Mcdoanld - 12/14/2024 1:30 PM EST Look into Zepbound, which would be an injectable medication once weekly for weight loss. Please also resume taking b12 supplement - recommend sublingual b12 documented in this encounter Plan of Treatment Scheduled Orders Name Type Priority Associated Diagnoses Orde r Schedule Comprehensive Metabolic Panel Lab Routine Class 2 severe obesity with serious comorbidity and body mass index (BMI) of 37.0 to 37.9 in adult, unspecified obesity type (CMS/HCC) Expected: 12/14/2024 (Approximate), Expires: 12/14/2025 Hemoglobin A1c Lab Routine Class 2 severe obesity with serious comorbidity and body mass index (BMI) of 37.0 to 37.9 in adult, unspecified obesity type (CMS/HCC) Expected: 12/14/2024 (Approximate), Expires: 12/14/2025 Lipid Panel, Standard Lab Routine Class 2 severe obesity with serious comorbidity and body mass index (BMI) of 37.0 to 37.9 in adult, unspecified obesity type (CMS/HCC) Expected: 12/14/2024 (Approximate), Expires: 12/14/2025 Vitamin B12 Lab Routine B12 deficiency Expected: 12/14/2024 (Approximate), Expires: 12/14/2025 TSH W/Reflex to FT4 Lab Routine Class 2 severe obesity with serious comorbidity and body mass index (BMI) of 37.0 to 37.9 in adult, unspecified obesity type (CMS/HCC) Expected: 12/14/2024 (Approximate), Expires: 12/14/2025 documented as of this encounter Visit Diagnoses Diagnosis Mood disorder (CMS/HCC)- Primary Unspecified episodic mood disorder Obesity (BMI 30-39.9) Class 2 severe obesity with serious comorbidity and body mass index (BMI) of 37.0 to 37.9 in adult, unspecified obesity type (CMS/HCC) PCOS (polycystic ovarian syndrome) Polycystic ovaries Mild intermittent asthma without complication B12 deficiency documented in this encounter Additional Health Concerns Assessment Noted Time PHQ-9 Depression Total Score: 3 01/10/20 24 9:18 AM EDT documented as of this encounter Care Teams Stitch Burnisher Relationship Specialty Start Date End Date Miley Wheatley ANP [address] [place] [id number] PCP - General Family Medicine 07/21/21 Keo Carlson FNP [address] [place] [id number] Nurse Practitioner Family Medicine 09/20/23 documented as of this encounter
--- OUTSIDE RECORDS SUMMARY | 2024-12-14 14:35 | XMS_ITS | Encounter Summary ---
Author Organization [employer] Address [address] [place] [address] [address] [place] [address] Care Team Providers Care Air Export Coordinator Name Role Phone Miley Wheatley Primary Care Provider [phone] Keo Carlson Unavailable Unavailable Reason for Visit * Reason Onset Date Comments Med Refill 12/14/2024 Encounter Details Date Type Department Care Team (Late st Contact Info) Description 12/14/2024 Telephone [facility] [address] [place], [place] [phone] Miley Wheatley ANP [address] [place], [place] [phone] Med Refill Social History Tobacco Use Types Packs/Day Years [...] AM EDT documented as of this encounter Miscellaneous Notes * Telephone Encounter - Kelly Taylor - 12/14/2024 2:25 PM EST Patient walked in requesting refill of medication: Aripiprazole 5 mg Lorazepam 0.5 mg Albuterol (only solution) documented in this encounter Plan of Treatment Not on file documented as of this encounter Visit Diagnoses Not on filedocumented in this encounter Additional Health Concerns Assessment Noted Time PHQ-9 Depression Total Score: 3 01/10/20 24 9:18 AM EDT documented as of this encounter Care Teams Air Export Coordinator Relationship Specialty Start Date End Date Miley Wheatley ANP [address] [place] [address] PCP - General Family Medicine 07/21/21 Keo Carlson FNP [address] [place] [address] Nurse Practitioner Family Medicine 09/20/23 documented as of this encounter
--- OUTSIDE RECORDS SUMMARY | 2024-12-14 14:35 | XMS_ITS | Encounter Summary ---
Author Organization [employer] Address [address] [place] [address] [address] [place] [address] Care Team Providers Care Bar Manager Name Role Phone Miley Wheatley Primary Care Provider [phone] Keo Carlson Unavailable Unavailable Reason for Visit * Reason Comments Pre-visit Planning SDOH Screening negat sanjeev and Tobacco screening negative Encounter Details Date Type Department Care Team ([facility] st Contact Info) Description 11/30/2024 Patient Outreach [facility] [address] [place], [place] [phone] Miley Wheatley ANP [address] [place], [place] [phone] Pre-visit Planning (SDOH Screening negative and Tobacco screening negative) Social History Tobacco Use Types Packs/Day Years [...] as of this encounter Progress Notes * Kateryna Mc - 11/30/2024 11:01 AM EST JENSEN Vang placed successful outbound call to patient for pre-visit planning. Patient name and confirmed. Patient confirms appt date and time, and has transportation arrangements. Biggest concern for appointment at this time is no concerns. Patient advised to bring to appointment a photo id and insurance card. Appropriate screenings completed in anticipation of appointment. documented in this encounter Plan of Treatment Not on file documented as of this encounter Visit Diagnoses Not on filedocumented in this encounter Additional Health Concerns Assessment Noted Time PHQ-9 Depression Total Score: 3 01/10/20 24 9:18 AM EDT documented as of this encounter Care Teams Bar Manager Relationship Specialty Start Date End Date Miley Wheatley ANP [address] [place] [address] PCP - General Family Medicine 07/21/21 Keo Carlson FNP [address] [place] [address] Nurse Practitioner Family Medicine 09/20/23 documented as of this encounter
--- OUTSIDE RECORDS SUMMARY | 2024-12-14 14:35 | XMS_ITS | Clinical Summary ---
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 for the release of medical or other information is NOT sufficient for this purpose. ? For additional information please refer to http://Discoverly.Framebench/faq/UMQ838 (This link is being provided for informational/ educational purposes only.) ? The performance of this assay has not been clinically validated in patients less than 2 years old. ?? 06/29/2021 10:4 2 AM EDT [facility] LAB BLOOD ORDERABLES Final Resul t [facility] [address] * (ABNORMAL) LIPID PANEL, STANDARD (06/29/2021 10:42 AM EDT) Chol/HDLC Ratio 4.0 <5.0 (calc) [facility] Cholesterol, Total 206(H) <200 mg/dL [facility] HDL Cholesterol 52 > OR = 50 mg/dL [facility] LDL Cholesterol 138(H) mg/dL (calc) [facility] Comment: Reference range: <100 ?? Desirable range <100 mg/dL for primary prevention; ?? <70 mg/dL for patients with CHD or diabetic patients ?? with > or = 2 CHD risk factors. ?? LDL-C is now calculated using the Reyes-Contreras ?? calculation, which is a validated novel method providing ?? better accuracy than the Friedewald equation in the ?? estimation of LDL-C. ?? Reyes RANGEL et al. JAH. 2013;310(19): 2962-0640 ?? (http://Discoverly.[employer]/faq/ORT465) Non-HDL Cholesterol 154(H) <130 mg/dL (calc) [facility] Comment: For patients with diabetes plus 1 major ASCVD risk ?? factor, treating to a non-HDL-C goal of <100 mg/dL ?? (LDL-C of <70 mg/dL) is considered a therapeutic ?? option. Triglycerides 67 <150 mg/dL [facility] 06/29/2021 10:4 2 AM EDT [place] [facility] [place]OD ORDERABLES Final Resul t [facility] [address] from Last 3 Months or Most Recently Relevant to Health Maintenance Insurance [facility] C3 DENTAL-[facility] MEDICAID STAND ADULT Care Teams Jury Consultant Relationship Specialty Start Date End Date Miley Wheatley ANP [address] [place] [address] PCP - General Family Medicine 07/21/21 Keo Carlson FNP [address] [place] [address] Nurse Practitioner Family Medicine 09/20/23
--- OUTSIDE RECORDS SUMMARY | 2024-12-14 14:35 | XMS_ITS | Encounter Summary ---
Author Organization [facility] Address [address] [place] [address] Care Team Providers Care Hand Sizer Name Role Phone Pito Mims MD Primary Care Provider [phone] Encounter Details Date Type Department Care Team (Late st Contact Info) Description 12/04/2024 [facility] [address] [place] [address] Odalys Gaona MD [address] [place] [address] [place] [address] Localization-related (focal) (partial) symptomatic epilepsy and epileptic [...] not intractable, without status epilepticus (CMS/HCC) 12/04/2024 9:07 AM EST documented as of this encounter Visit Diagnoses Diagnosis Localization-related (focal) (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, not intractable, without status epilepticus (CMS/HCC) documented in this encounter Care Teams Hand Sizer Relationship Specialty Start Date End Date Pito Mims MD [address] [place] [address] PCP - General Internal Medicine 03/20/14 documented as of this encounter
[2024-12-14 16:35] LABS: Estimated Average Glucose 94 mg/dL; Hemoglobin A1C 112.3674 umol/L; Hemoglobin A1c % 4.9 % (<6.0); Total Hemoglobin (HGBA1C) 3677.6716 umol/L
[2024-12-14 16:46] LABS: Alanine Aminotransferase 13 U/L (0-31); Albumin Level 4.5 g/dL (3.5-5.0); Alkaline Phosphatase 62 U/L (39-117); Anion Gap 11 (12-20); Aspartate Amino Transferase 22 U/L (5-31); Bilirubin Total 0.4 mg/dL (0.0-1.0); Blood Urea Nitrogen 12 mg/dL (9-16); Calcium 9.9 mg/dL (8.4-10.2); Carbon Dioxide 25 mmol/L (22-29); Chloride 107 mmol/L (96-108); Cholesterol 217 mg/dL (<200); Estimated Glomerular Filt Rate > 60; Glucose Random 92 mg/dL (60-115); HDL Cholesterol 43 mg/dL (>40); LDL Cholesterol Calculated 155 mg/dL (<100); Potassium 4.3 mmol/L (3.3-5.1); Sodium 139 mmol/L (135-145); Triglycerides 98 mg/dL (<150)
[2024-12-14 17:02] LABS: TSH reflex Free T4 2.68 uIU/mL (0.32-4.0)
[2024-12-14 17:08] LABS: Vitamin B12 619 pg/mL (200-900)
== END 2024-12-14 14:32 | disposition home or self-care (01) ==
LOC: HO.HHCL 14:31
PROVIDERS: Visit Provider Nurse Practitioner Primary Care
DX: E66.812 Obesity, class 2 (principal); E66.01 Morbid (severe) obesity due to excess calories; Z68.37 Body mass index [BMI] 37.0-37.9, adult; E53.8 Deficiency of other specified B group vitamins
CPT/HCPCS: 36415; 80053; 80061; 82607; 83036; 84443